=== PATIENT | female | born 1940 | race Caucasian/White ===

== ENCOUNTER 2018-04-24 21:19 | Emergency (ER) | payer MEDICARE, OTHER ==
[2018-04-24 21:41] VITALS: BP 165/73
--- NOTE | 2018-04-24 22:07 | EDM.PDOC ---
ED HPI GENERAL MEDICAL PROBLEM - General Chief Complaint: Lower Extremity Injury/Pain Stated Complaint: right leg pain, right knee swelling Time Seen by Provider: 04/24/18 21:38 Source of Information: Reports: Patient History Limitations: Reports: No Limitations - History of Present Illness INITIAL COMMENTS - FREE TEXT/NARRATIVE: Patient comes into the emergency department with three-day history of right knee pain and swelling. Patient states that progressively over the last 3 days that the swelling in her right knee has continued to increase. She states that today she started developing more severe pain in the thigh and the lower calf. She does have a history of long travel approximately a month ago she was on the road for 4 days in a vehicle [place] country. Denies any fever nausea vomiting diarrhea. Denies any redness or lower extremity. Does state that it is extremely painful at times. Also states that it does hurt more at night while resting. Onset: Gradual Quality: Reports: Ache, Throbbing Severity: Moderate Improves with: Reports: Immobilization Worsens with: Reports: Movement Right Leg Pain Score (Numeric/FACES): 4 - Related Data Allergies Allergy/AdvReac Type Severity Reaction Status Date / Time azithromycin [From Zithromax] Allergy Cannot Verified 04/24/18 21:33 Remember codeine Allergy Excitabilit Verified 04/24/18 21:33 y Penicillins Allergy Cannot Verified 04/24/18 21:33 Remember pseudoephedrine Allergy Hyperactivi Verified 04/24/18 21:33 [From Sudafed] ty tizanidine [From Zanaflex] Allergy Diarrhea Verified 04/24/18 21:33 tramadol [From Ultram] Allergy Other Verified 04/24/18 21:33 HAYFEVER Allergy Itching Uncoded 04/24/18 21:33 walnuts Allergy Hives Uncoded 04/24/18 21:33 Home Meds: Home Meds ALPRAZolam [Xanax] 0.25 mg PO DAILY PRN 10/16/16 [History] Aspirin [Halfprin] 81 mg PO DAILY 10/16/16 [History] Calcium Carbonate/Vitamin D3 [Calcium Carb 500 MG] 500 mg PO QAM 10/16/16 [ History] Hydrochlorothiazide 12.5 mg PO DAILY 10/16/16 [History] Lisinopril 5 mg PO DAILY 10/16/16 [History] Magnesium Chloride [Slow-Mag] 1 tab PO DAILY 10/16/16 [History] Metoprolol Tartrate [Lopressor] 50 mg PO BID 10/16/16 [History] Multivitamin [Multivitamins] 1 tab PO DAILY 10/16/16 [History] Simvastatin [Zocor] 10 mg PO DAILY 10/16/16 [History] diphenhydrAMINE [Benadryl] 25 mg PO QID PRN 10/16/16 [History] metFORMIN HCl [Glucophage] 1,000 mg PO BID 10/16/16 [History] Albuterol [Ventolin HFA] 2 puff INH Q4H PRN 04/24/18 [History] Naproxen Sodium [Aleve] 220 mg PO BID PRN 04/24/18 [History] Past Medical History HEENT History: Reports: Allergic Rhinitis, Cataract Other HEENT History: RETINAL SCAR Cardiovascular History: Reports: High Cholesterol, Hypertension Respiratory History: Reports: COPD Other Respiratory History: EMPHYSEMA Genitourinary History: Reports: None 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: Musculoskeletal History: Reports: Back Pain, Chronic, Fibromyalgia, Neck Pain, Chronic Other Musculoskeletal History: MYALGIA AND MYOSITIS Neurological History: Reports: None Psychiatric History: Reports: Anxiety Other Psychiatric History: INSOMNIA Endocrine/Metabolic History: Reports: None, Diabetes, Type II Hematologic History: Reports: None Oncologic (Cancer) History: Reports: None Dermatologic History: Reports: None - Past Surgical History Head Surgeries/Procedures: Reports: None HEENT Surgical History: Reports: Cataract Surgery Female Surgical History: Reports: None Neurological Surgical History: Reports: None Dermatological Surgical History: Reports: None Social & Family History - Tobacco Use Smoking Status *Q: Never Smoker Review of Systems - Review of Systems Review Of Systems: See Below Constitutional: Reports: No Symptoms Eyes: Reports: No Symptoms Ears: Reports: No Symptoms Nose: Reports: No Symptoms Mouth/Throat: Reports: No Symptoms Respiratory: Reports: No Symptoms Cardiovascular: Reports: No Symptoms GI/Abdominal: Reports: No Symptoms Genitourinary: Reports: No Symptoms Musculoskeletal: Reports: Leg Pain, Joint Pain, Joint Swelling Skin: Reports: No Symptoms Neurological: Reports: No Symptoms Psychiatric: Reports: No Symptoms ED EXAM, GENERAL - Physical Exam Exam: See Below Exam Limited By: No Limitations General Appearance: Alert, WD/WN, No Apparent Distress Head: Atraumatic, Normocephalic Neck: Normal Inspection Respiratory/Chest: No Respiratory Distress, Lungs Clear, No Accessory Muscle Use Cardiovascular: Normal Peripheral Pulses Extremities: Leg Pain Neurological: Alert, Oriented, Normal Reflexes, No Motor/Sensory Deficits Psychiatric: Normal Affect, Normal Mood Skin Exam: Warm, Dry, Intact, Normal Color, No Rash Course - Vital Signs Last Recorded V/S: Last Vital Signs Temp 37.2 C 04/24/18 21:38 Pulse 76 04/24/18 21:38 Resp 18 04/24/18 21:38 BP 165/73 H 04/24/18 21:38 Pulse Ox 96 04/24/18 21:38 - Orders/Labs/Meds Orders: Active Orders 24 hr Category Date Time Status Knee 3V Rt [CR] Stat Exams 04/24/18 22:06 Taken Labs: Laboratory Tests 04/24/18 04/24/18 04/24/18 Range/Units 22:08 22:08 22:08 WBC 5.5 (4.0-10.0) x10^3/uL RBC 4.15 (4.00-5.50) x10^6/uL Hgb 13.0 (12.0-16.0) g/dL Hct 39.2 (33.0-47.0) % MCV 94.5 H (78.0-93.0) fL MCH 31.3 (26.0-32.0) pg MCHC 33.2 (32.0-36.0) g/dL RDW Coeff of Richie 13.5 (10.0-15.0) % Plt Count 184 (130-400) x10^3/uL Neut % (Auto) 52.6 (50.0-80.0) % Lymph % (Auto) 31.7 (25.0-50.0) % Burke % (Auto) 8.3 (2.0-11.0) % Eos % (Auto) 6.5 H (0.0-4.0) % Baso % (Auto) 0.9 (0.2-1.2) % D-Dimer, Quantitative 0.42 (<=0.58) mg/LFEU Sodium 139 (136-145) mmol/L Potassium 3.6 (3.5-5.1) mmol/L Chloride 102 (98-107) mmol/L Carbon Dioxide 30 (21-32) mmol/L Anion Gap 10.6 (10-20) mmol/L BUN 20 H (7-18) mg/dL Creatinine 1.2 H (0.55-1.02) mg/dL Est Cr Clr Drug Dosing TNP Estimated GFR (MDRD) 44 Glucose 263 H (74-106) mg/dL Lactic Acid (0.4-2.0) mmol/L Calcium 9.2 (8.5-10.1) mg/dL Corrected Calcium 9.44 (8.5-10.1) mg/dL Total Bilirubin 0.3 (0.2-1.0) mg/dL AST 20 (15-37) U/L ALT 31 (14-59) U/L Alkaline Phosphatase 64 (46-116) U/L Creatine Kinase 66 (26-192) U/L Total Protein 6.5 (6.4-8.2) g/dL Albumin 3.7 (3.4-5.0) g/dL Globulin 2.8 Albumin/Globulin Ratio 1.32 / Range/Units 22:08 WBC (4.0-10.0) x10^3/uL RBC (4.00-5.50) x10^6/uL Hgb (12.0-16.0) g/dL Hct (33.0-47.0) % MCV (78.0-93.0) fL MCH (26.0-32.0) pg MCHC (32.0-36.0) g/dL RDW Coeff of Richie (10.0-15.0) % Plt Count (130-400) x10^3/uL Neut % (Auto) (50.0-80.0) % Lymph % (Auto) (25.0-50.0) % Burke % (Auto) (2.0-11.0) % Eos % (Auto) (0.0-4.0) % Baso % (Auto) (0.2-1.2) % D-Dimer, Quantitative (<=0.58) mg/LFEU Sodium (136-145) mmol/L Potassium (3.5-5.1) mmol/L Chloride (98-107) mmol/L Carbon Dioxide (21-32) mmol/L Anion Gap (10-20) mmol/L BUN (7-18) mg/dL Creatinine (0.55-1.02) mg/dL Est Cr Clr Drug Dosing Estimated GFR (MDRD) Glucose (74-106) mg/dL Lactic Acid 2.3 H* (0.4-2.0) mmol/L Calcium (8.5-10.1) mg/dL Corrected Calcium (8.5-10.1) mg/dL Total Bilirubin (0.2-1.0) mg/dL AST (15-37) U/L ALT (14-59) U/L Alkaline Phosphatase (46-116) U/L Creatine Kinase (26-192) U/L Total Protein (6.4-8.2) g/dL Albumin (3.4-5.0) g/dL Globulin Albumin/Globulin Ratio Departure - Departure Time of Disposition: 23:00 Disposition: Home, Self-Care 01 Condition: Good Clinical Impression: Knee strain Qualifiers: Encounter type: initial encounter Laterality: right Qualified Code(s): S86.911A - Strain of unspecified muscle(s) and tendon(s) at lower leg level, right leg, initial encounter - Discharge Information Instructions: Elastic Bandage and RICE, Muscle Strain Referrals: Stacey Thomas MD [Primary Care Provider] - Forms: ED Department Discharge Additional Instructions: 1. rest 2. Elevate ice and rest extremity 3. Can use ibuprofen and Tylenol for pain relief 4. Follow up with PCP within a week if not feeling better 5. Can use John wrap to help with discomfort - Problem List Review Problem List Initiated/Reviewed/Updated: Yes - My Orders Last 24 Hours: My Active Orders 04/24/18 22:06 Knee 3V Rt [CR] Stat - Assessment/Plan Last 24 Hours: My Active Orders 04/24/18 22:06 Knee 3V Rt [CR] Stat Assessment:: 1. knee pain Plan: 1. Labs completed results reviewed with pt 2. xray of the knee completed in ER with results reviewed with the pt. 3. All findings are negative today. Patient is advised to use ice and an John wrap to help with swelling and discomfort. He is also encouraged to use them for him Tylenol for any pain. If pain is not better within a week she is to follow-up with her PCP for further testing and possible ultrasound
[2018-04-24 22:41] LABS: CHLORIDE,CL 102 mmol/L (98-107); SODIUM,NA 139 mmol/L (136-145)
== END 2018-04-24 23:10 | disposition home or self-care (01) ==
LOC: VM.ED 21:19
DX: S86.911A Strain of unspecified muscle(s) and tendon(s) at lower leg level, right leg, initial encounter (principal); I10 Essential (primary) hypertension; J44.9 Chronic obstructive pulmonary disease, unspecified; E11.9 Type 2 diabetes mellitus without complications; E78.00 Pure hypercholesterolemia, unspecified; Z88.1 Allergy status to other antibiotic agents; Z88.5 Allergy status to narcotic agent; Z79.82 Long term (current) use of aspirin; Z79.899 Other long term (current) drug therapy; Z79.84 Long term (current) use of oral hypoglycemic drugs; X58.XXXA Exposure to other specified factors, initial encounter
CPT/HCPCS: 36415; 73562-RT; 80053; 82550; 83605; 85025; 85379; 99284

== ENCOUNTER 2025-10-31 09:30 | Inpatient (IN) | payer MEDICARE ==
[2025-10-31] MEDS ORDERED: Ondansetron 4 MG Tab.DIS PO PRN (16:22)
[2025-10-31] MEDS ORDERED: 50% Dextrose in Water 50 ML Syringe IVPUSH PRN (16:28)
[2025-10-31 17:09] LABS: APPEARANCE,URINE CLEAR (CLEAR); GLUCOSE,URINE 500 mg/dL (NEGATIVE); OCCULT BLOOD,URINE TRACE-INTACT (NEGATIVE)
[2025-10-31 17:11] LABS: SQUAMOUS EPITHELIAL CELLS,UR RARE /HPF (NOT SEEN)
[2025-11-01 06:38] LABS: BASOPHILS ABSOLUTE AUTO 0.1 x10^3/uL (0.0-0.2); BASOPHILS PERCENT AUTO 0.8 % (0.2-1.2); EOSINOPHILS ABSOLUTE AUTO 0.3 x10^3/uL (0.0-0.5); EOSINOPHILS PERCENT AUTO 4.7 % (0.0-4.0); IMMATURE GRAN ABSOLUTE AUTO 0.06 x10^3/uL (0.00-0.07); IMMATURE GRAN PERCENT AUTO 0.90 % (0.00-0.43); LYMPHOCYTES ABSOLUTE AUTO 1.4 x10^3/uL (1.0-4.8); LYMPHOCYTES PERCENT AUTO 22.3 % (25.0-50.0); MONOCYTES ABSOLUTE AUTO 0.6 x10^3/uL (0.0-0.8); MONOCYTES PERCENT AUTO 8.8 % (2.0-11.0); NEUTROPHILS ABSOLUTE AUTO 4.0 x10^3/uL (1.8-7.7); NEUTROPHILS PERCENT AUTO 62.5 % (50.0-80.0); PLATELET COUNT,PLT 249 x10^3/uL (130-400); RED BLOOD CELL COUNT 3.67 x10^6/uL (4.00-5.50); WHITE BLOOD CELL COUNT,WBC 6.4 x10^3/uL (4.0-10.0)
[2025-11-01 07:07] LABS: A/G RATIO 0.84; ALANINE AMINOTRANSFERASE,ALT 43.0 U/L (14-59); ASPARTATE AMNIOTRANSFERASE,AST 16.0 U/L (15-37); BILIRUBIN TOTAL 0.3 mg/dL (0.2-1.0); BLOOD UREA NITROGEN,BUN 14.0 mg/dL (7-18); CARBON DIOXIDE,CO2 29.0 mmol/L (21-32); CHLORIDE,CL 102.0 mmol/L (98-107); CREATININE 1.0 mg/dL (0.55-1.02); EST CRCL DRUG DOSING (CG) 32.53 mL/min; ESTIMATED GFR 55.0 mL/min (>=60); GLUCOSE RANDOM 225.0 mg/dL (70-99); POTASSIUM,K 4.1 mmol/L (3.5-5.1); PRO B-TYPE NATRIUR PEPT,BNPPRO 1221.0 pg/mL (<=450); PROTEIN TOTAL,TP 5.7 g/dL (6.4-8.2); SODIUM,NA 139.0 mmol/L (136-145)
[2025-11-01] MEDS: Sennosides/Docusate Sodium 50-8.6 MG Tab PO SCH (08:17)
[2025-11-01] MEDS: glipiZIDE 2.5 MG Tab.ER PO SCH (08:22)
[2025-11-01] MEDS: Tiotropium Bromide 4 GM Inhalation Spray (2.5mcg/1 dose; 10 doses) INH SCH (08:34)
[2025-11-04 08:06] LABS: PLATELET COUNT,PLT 264.0 x10^3/uL (130-400); RED BLOOD CELL COUNT 3.73 x10^6/uL (4.00-5.50); WHITE BLOOD CELL COUNT,WBC 6.1 x10^3/uL (4.0-10.0)
[2025-11-06 06:51] LABS: BASOPHILS ABSOLUTE AUTO 0.1 x10^3/uL (0.0-0.2); BASOPHILS PERCENT AUTO 1.0 % (0.2-1.2); EOSINOPHILS ABSOLUTE AUTO 0.5 x10^3/uL (0.0-0.5); EOSINOPHILS PERCENT AUTO 7.9 % (0.0-4.0); IMMATURE GRAN ABSOLUTE AUTO 0.01 x10^3/uL (0.00-0.07); IMMATURE GRAN PERCENT AUTO 0.20 % (0.00-0.43); LYMPHOCYTES ABSOLUTE AUTO 1.3 x10^3/uL (1.0-4.8); LYMPHOCYTES PERCENT AUTO 22.4 % (25.0-50.0); MONOCYTES ABSOLUTE AUTO 0.6 x10^3/uL (0.0-0.8); MONOCYTES PERCENT AUTO 9.3 % (2.0-11.0); NEUTROPHILS ABSOLUTE AUTO 3.5 x10^3/uL (1.8-7.7); NEUTROPHILS PERCENT AUTO 59.2 % (50.0-80.0); PLATELET COUNT,PLT 253 x10^3/uL (130-400); RED BLOOD CELL COUNT 3.65 x10^6/uL (4.00-5.50); WHITE BLOOD CELL COUNT,WBC 5.9 x10^3/uL (4.0-10.0)
[2025-11-06 07:14] LABS: BLOOD UREA NITROGEN,BUN 16.0 mg/dL (7-18); CARBON DIOXIDE,CO2 29.0 mmol/L (21-32); CHLORIDE,CL 103.0 mmol/L (98-107); CREATININE 1.0 mg/dL (0.55-1.02); EST CRCL DRUG DOSING (CG) 32.53 mL/min; GLUCOSE RANDOM 132.0 mg/dL (70-99); POTASSIUM,K 3.7 mmol/L (3.5-5.1); PRO B-TYPE NATRIUR PEPT,BNPPRO 297.0 pg/mL (<=450); SODIUM,NA 140.0 mmol/L (136-145)
[2025-11-06 07:17] LABS: ESTIMATED GFR 55.0 mL/min (>=60)
[2025-11-07 07:03] LABS: PLATELET COUNT,PLT 276.0 x10^3/uL (130-400); RED BLOOD CELL COUNT 4.06 x10^6/uL (4.00-5.50); WHITE BLOOD CELL COUNT,WBC 5.8 x10^3/uL (4.0-10.0)
[2025-11-08 18:40] VITALS: BP 134/62; PULSE 81
== END 2025-11-08 18:40 | disposition home health service (06) | DRG 948 ==
LOC: VM.MS 15:12
PROVIDERS: ADMIT Family Medicine; ATTEND Family Medicine
DX: R53.81 Other malaise (principal); K52.89 Other specified noninfective gastroenteritis and colitis; E83.42 Hypomagnesemia; E87.6 Hypokalemia; F41.9 Anxiety disorder, unspecified; N18.31 Chronic kidney disease, stage 3a; Z66 Do not resuscitate; J44.89 Other specified chronic obstructive pulmonary disease; G47.00 Insomnia, unspecified; D63.1 Anemia in chronic kidney disease; I12.9 Hypertensive chronic kidney disease with stage 1 through stage 4 chronic kidney disease, or unspecified chronic kidney disease; E11.22 Type 2 diabetes mellitus with diabetic chronic kidney disease; E66.9 Obesity, unspecified; K59.09 Other constipation; E78.00 Pure hypercholesterolemia, unspecified; J30.1 Allergic rhinitis due to pollen; G89.29 Other chronic pain; Z79.82 Long term (current) use of aspirin; Z79.1 Long term (current) use of non-steroidal anti-inflammatories (NSAID); Z79.84 Long term (current) use of oral hypoglycemic drugs; Z79.899 Other long term (current) drug therapy; Z88.5 Allergy status to narcotic agent; Z88.1 Allergy status to other antibiotic agents; Z91.018 Allergy to other foods; Z88.0 Allergy status to penicillin; Z88.8 Allergy status to other drugs, medicaments and biological substances; Z68.28 Body mass index [BMI] 28.0-28.9, adult; Z98.49 Cataract extraction status, unspecified eye
CPT/HCPCS: 36415; 80048; 80053; 81001; 82040; 82947; 83735; 83880; 85025; 85027; 97110-GO; 97110-GP; 97116-GP; 97161-GP; 97165-GO; 97535-GO; A9270-GY; J1650; J1815-GY